=== PATIENT | male | born 1975 | race Caucasian/White ===

== ENCOUNTER → 2017-11-11 12:32 | Outpatient (CLI) | payer OTHER, SELFPAY ==
[2017-11-11 13:38] LABS: LDH 171 U/L (87-241)
[2017-11-14 09:07] LABS: HCG BETA-SUBUNIT QUANT. < 1 mIU/mL (0-3)
[2017-11-14 10:42] LABS: AFP, Tumor Marker 3.2 ng/mL (0.0-8.3)
== END ==
PROVIDERS: Family Provider Student in an Organized Health Care Education/Training Program; PCP Student in an Organized Health Care Education/Training Program; Visit Provider Urology
DX: C62.90 Malignant neoplasm of unspecified testis, unspecified whether descended or undescended (principal)
CPT/HCPCS: 36415; 82105; 83615; 84702

== ENCOUNTER → 2018-12-13 16:17 | Outpatient (CLI) | payer OTHER, SELFPAY ==
[2018-12-13 18:03] LABS: LDH 235 U/L (87-241)
[2018-12-15 15:38] LABS: HCG BETA-SUBUNIT QUANT. < 1 mIU/mL (0-3)
[2018-12-15 15:39] LABS: AFP, Tumor Marker 2.9 ng/mL (0.0-8.3)
== END ==
PROVIDERS: Family Provider Student in an Organized Health Care Education/Training Program; PCP Student in an Organized Health Care Education/Training Program; Referring Provider Urology; Visit Provider Urology
DX: C62.90 Malignant neoplasm of unspecified testis, unspecified whether descended or undescended (principal)
CPT/HCPCS: 36415; 82105; 83615; 84702